=== PATIENT | female | born 1975 | race Caucasian/White ===

== ENCOUNTER 2018-03-19 14:23 | Emergency (ER) | payer OTHER ==
[~2018-03-19] VITALS: Ht 160 cm; Wt 89.4 kg
[~2018-03-19 14:23] MED LIST: ACETAMINOPHEN-1 EAC1 PO; ATIVAN1 MG PO; HYDROCODONE-AP1 EAC6 PO; IBUPROFEN 800800 M1 PO; IBUPROFEN 800800 MG PO; PROPRANOLOL 1010 MG PO; SYNTHROID25 MCG PO; XANAX 0.25 MG0.25 MG PO; ZOFRAN4 MG PO
[2018-03-19 14:42] LABS: URINE BILIRUBIN NEGATIVE (Negative); URINE BLOOD NEGATIVE (Negative); URINE CLARITY CLEAR; URINE COLOR YELLOW; URINE GLUCOSE-RANDOM NEGATIVE (Negative); URINE KETONES NEGATIVE (Negative); URINE LEUKOCYTES-REFLEX TRACE (Negative); URINE PROTEIN NEGATIVE (Negative); URINE SPECIFIC GRAVITY >= 1.030 (1.005-1.030); URINE UROBILINOGEN 0.2 E.U./dl (0.2-1.0)
[2018-03-19 14:43] LABS: URINE NITRITE-REFLEX POSITIVE (Negative)
[2018-03-19 14:48] LABS: ABSOLUTE EOSINOPHILS 0.1 thou/uL (0.0-0.7); ABSOLUTE LYMPHOCYTES 1.7 thou/uL (0.8-5.3); ABSOLUTE MONOCYTES 0.4 thou/uL (0.0-1.2); ABSOLUTE NEUTROPHILS 4.5 thou/uL (1.6-8.1); BASOPHILS 0.7 %; EOSINOPHILS 1.8 %; HEMATOCRIT 39.5 % (37.0-47.0); HEMOGLOBIN 13.5 gm/dL (12.0-15.0); LYMPHOCYTES 25.1 %; MCHC 34.1 g/dL (28.0-37.0); MCV 85.1 fL (80.0-100.0); MPV 7.3 fl. (7.2-11.1); NUCLEATED RBCS 0 /100WBC; PLATELET COUNT* 281 thou/uL (150-400); POLYS 66.4 %; RBC 4.64 mil/uL (4.20-5.00); RDW-CV 13.7 % (10.5-14.5); WBC 6.8 thou/uL (4.0-11.0)
[2018-03-19] MEDS ORDERED: ZOFRAN ODT4 MG DISSOLVE (14:48)
[2018-03-19 14:56] LABS: CASTS None Seen /LPF (None Seen); CRYSTALS None Seen /LPF (None Seen); MUCUS None Seen strn/LPF (None Seen); SQUAMOUS >10 Many /LPF (0-3)
[2018-03-19 14:57] LABS: ANION GAP 7 mmol/L (7-16); BUN 14 mg/dL (7-18); CALCIUM 8.5 mg/dL (8.5-10.1); CHLORIDE 103 mmol/L (98-107); CO2 29 mmol/L (21-32); CREATININE 0.8 mg/dL (0.6-1.3); GLUCOSE 99 mg/dL (70-99); POTASSIUM 3.8 mmol/L (3.5-5.1); SODIUM 139 mmol/L (136-145)
[2018-03-19 14:57] LABS: BACTERIA-REFLEX >30 Many /HPF (None Seen); URINE WBC-REFLEX >25 Many /HPF (0-5)
[2018-03-19 14:59] LABS: URINE RBC None Seen /HPF (0-2)
[2018-03-19] MEDS ORDERED: BACTRIM DS TAB1 EACH PO (14:59)
[2018-03-19] MEDS ORDERED: PYRIDIUM100 M1 PO (14:59)
[2018-03-19] MEDS ORDERED: NAPROSYN500 MG PO (14:59)
[2018-03-19 15:04] LABS: ALBUMIN 3.8 g/dL (3.4-5.0); ALKALINE PHOSPHATASE 71 U/L (46-116); LIPASE 111 U/L (73-393); SGOT 9 U/L (15-37); SGPT 15 U/L (30-65); TOTAL BILIRUBIN 0.3 mg/dL (<0.1-1.0); TOTAL PROTEIN 7.4 g/dL (6.4-8.2); TROPONIN-I LEVEL <0.06 ng/mL (<0.06)
[2018-03-19 15:05] VITALS: BP 127/80
== END 2018-03-19 15:07 | disposition home or self-care (01) ==
LOC: M.ERS 14:23
PROVIDERS: Physician Assistant
DX: N39.0 Urinary tract infection, site not specified (principal); F41.0 Panic disorder [episodic paroxysmal anxiety]; Z87.891 Personal history of nicotine dependence; Z88.8 Allergy status to other drugs, medicaments and biological substances; Z90.710 Acquired absence of both cervix and uterus; Z85.41 Personal history of malignant neoplasm of cervix uteri

== ENCOUNTER 2018-05-19 22:52 | Emergency (ER) | payer OTHER ==
[~2018-05-19] VITALS: Ht 160 cm; Wt 90.7 kg
[~2018-05-19 22:52] MED LIST changes: +BACTRIM DS TAB1 EACH PO; +NAPROSYN500 MG PO; +PYRIDIUM100 M1 PO; +ZOFRAN ODT4 MG DISSOLVE
[2018-05-19] MEDS ORDERED: ACETAMINOPHEN-1 EAC1 PO (23:54)
[2018-05-19] MEDS ORDERED: AMOXICILLIN 50500 MG PO (23:54)
[2018-05-19] MEDS ORDERED: LIDOCAINE VISC100 ML PO (23:55)
[2018-05-20 00:13] VITALS: BP 114/84
== END 2018-05-20 00:15 | disposition home or self-care (01) ==
LOC: M.ERS 22:52
DX: K04.7 Periapical abscess without sinus (principal); F41.9 Anxiety disorder, unspecified; Z90.710 Acquired absence of both cervix and uterus; Z87.891 Personal history of nicotine dependence; Z88.8 Allergy status to other drugs, medicaments and biological substances